=== PATIENT | female | born 1985 | race African-American/Black ===

== ENCOUNTER 2020-09-08 13:53 | Emergency (ER) | payer MEDICAID ==
[~2020-09-08] VITALS: Ht 154.9 cm; Wt 104.3 kg
[2020-09-08] MEDS ORDERED: NIFE60TA72 PO (14:12)
[2020-09-08] MEDS ORDERED: LABE200T5 PO (14:12)
[2020-09-08] MEDS ORDERED: ASPI81TA31 PO (14:12)
[2020-09-08 14:42] LABS: BASOPHILS % (AUTO) 0.2 % (0.0-2.0); EOSINOPHILS # (AUTO) 0.1 K/uL (0.0-0.7); HEMATOCRIT 29.8 % (31.2-41.9); LYMPHOCYTES # (AUTO) 1.4 K/uL (20.0-40.0); LYMPHOCYTES % (AUTO) 12.2 % (20.5-51.5); MEAN CORPUSCULAR HEMOGLOBIN 32.3 uug (24.7-32.8); MEAN CORPUSCULAR HGB CONC 33 g/dL (32.3-35.6); MEAN CORPUSCULAR VOLUME 96.7 fL (75.5-95.3); MONOCYTES # (AUTO) 0.9 K/uL (2.0-10.0); MONOCYTES % (AUTO) 7.7 % (0.0-11.0); NEUTROPHILS # (AUTO) 9.2 K/uL (1.8-8.9); NEUTROPHILS % (AUTO) 78.9 % (38.5-71.5); PLATELET COUNT (AUTO) 228 K/uL (179-408); RED BLOOD CELL COUNT(AUTO) 3.08 MIL/uL (3.63-4.92); WHITE BLOOD COUNT (AUTO) 11.7 K/uL (3.8-11.8)
[2020-09-08 14:45] LABS: CREATININE 0.7 mg/dL (0.6-1.3); POTASSIUM 4.1 mmol/L (3.5-5.1)
[2020-09-08] MEDS ORDERED: IOHEXOL 350 100 ML INFUS..BTL ONE (15:39)
[2020-09-08] MEDS ORDERED: IV NORMAL SALINE 0 ML IV ONE (15:39)
[2020-09-08] MEDS ORDERED: SWABABLE VALVE TRANSFER SET EA MC ONE (15:39)
--- NOTE | 2020-09-08 16:58 | NUR ---
TEST RESLUTS/ FACESHEET FAXED TO [facility] [phone] PER ADDIE. [phone].
[2020-09-08] MEDS ORDERED: HYDROCODONE/APAP 5-325MG TABLET PO ONE (18:00)
[2020-09-08] MEDS ORDERED: HYDROCODONE/APAP 5-325MG TABLET ONE (18:08)
--- NOTE | 2020-09-08 20:11 | NUR ---
Called [phone] spoke with [facility]. at [facility].
--- NOTE | 2020-09-08 20:19 | NUR ---
Called [facility] transfer center to transfer pt for higher level of care. Per L&D department, no bed availability. declines admission at this time.
--- NOTE | 2020-09-08 20:33 | NUR ---
Made call to [facility] for possible transfer for higher level of care. States they will call me back.
--- NOTE | 2020-09-08 20:41 | NUR ---
[facility] declines transfer. Not enough beds.
--- NOTE | 2020-09-08 21:34 | NUR ---
[facility] declines transfer. spoke with Dr. Faye
[2020-09-08] MEDS ORDERED: OXYCODONE/APAP 5-325 MG TABLET PO ONE (21:45)
[2020-09-08] MEDS ORDERED: OXYCODONE/APAP 5-325 MG TABLET ONE (21:52)
[2020-09-08] MEDS ORDERED: CHOLECALCIFEROL 1,000 UNIT TABLET ONE (21:52)
[2020-09-08] MEDS: CHOLECALCIFEROL 1,000 UNIT TABLET PO SCH (22:01)
--- NOTE | 2020-09-08 22:17 | NUR ---
Faxed over face sheet & clinicals to [facility]. fax# [phone]
--- NOTE | 2020-09-08 23:08 | NUR ---
Spoke with Yesi (counter caser). States patient is capitated to [facility]. Requesting to fax clinicals to RN plastics supervisor. fax#[phone].
--- NOTE | 2020-09-09 00:41 | NUR ---
Dr. Ocasio accepts patient for transfer to [facility]. pending transfer info from telehealth case manager
--- NOTE | 2020-09-09 02:42 | NUR ---
Transfer info: Patient accepted at [facility]. Pt going to Room 315B. Phone# for report is [phone]. Transport pickup ETA [id number].
--- NOTE | 2020-09-09 03:03 | NUR ---
Report given to Clarissa ALEMAN at [facility]
--- NOTE | 2020-09-09 03:41 | NUR ---
Called [facility] for update on pickup. [address] to pickup patient. ETA 45 min
--- NOTE | 2020-09-09 05:42 | NUR ---
[facility] [address] was here to pickup pt, but had emergency call so was unable to transport patient. States they are sending another unit to come by no later than 0630.
[2020-09-09] MEDS ORDERED: LIDOCAINE 5% PATCH TD ONE ×2 (05:45→05:50)
[2020-09-09] MEDS ORDERED: OXYCODONE/APAP 5-325 MG TABLET PO ONE (05:45)
[2020-09-09] MEDS ORDERED: OXYCODONE/APAP 5-325 MG TABLET ONE (05:50)
--- NOTE | 2020-09-09 06:40 | NUR ---
Spoke with housing case manager Marilyn regarding transportation issues. She Gave authorization code [id number] to use any ambulance company. Called [facility] for update on arrival time. States 20 min away.
--- NOTE | 2020-09-09 07:14 | NUR ---
PATIENT IS AWAKE AND ALERT WITH NO COMPLAINTS. SHE IS WATCHING TV. WAITING FOR AMBULANCE ARRIVAL.
--- NOTE | 2020-09-09 07:29 | NUR ---
[facility] HERE TO TAKE PATIENT TO [facility]. PATIENT IS AWAKE AND ALERT, VITAL SIGNS STABLE. PATIENT STATES PAIN IS MINIMAL RIGHT NOW
[2020-09-09] MEDS: CHOLECALCIFEROL 1,000 UNIT TABLET PO SCH (07:34)
--- NOTE | 2020-09-09 07:51 | NUR ---
REPORT GIVEN TO SINDHU ALEMAN FROM [facility].
== END 2020-09-09 07:53 | disposition short-term general hospital (02) ==
LOC: ER 13:53
DX: O98.812 Other maternal infectious and parasitic diseases complicating pregnancy, second trimester (principal); J18.1 Lobar pneumonia, unspecified organism; R07.9 Chest pain, unspecified; R79.1 Abnormal coagulation profile; Z3A.27 27 weeks gestation of pregnancy; J45.909 Unspecified asthma, uncomplicated; Z20.822 Contact with and (suspected) exposure to COVID-19
CPT/HCPCS: 36415; 70030-TC; 71045; 85025; 93005; A4663; J7050; Q9967

== ENCOUNTER 2021-11-09 00:50 | Emergency (ER) | payer MEDICAID ==
[~2021-11-09] VITALS: Ht 157.5 cm; Wt 93.9 kg
[~2021-11-09 00:50] MED LIST: ASPI81TA31 PO; LABE200T5 PO; NIFE60TA72 PO
--- NOTE | 2021-11-09 01:02 | NUR ---
Dr. Smalls at bedside, MSE in progress.
[2021-11-09] MEDS ORDERED: ASPIRIN 81 MG TAB.CHEW ONE (01:11)
[2021-11-09] MEDS ORDERED: predniSONE 20 MG TABLET ONE (01:11)
[2021-11-09] MEDS ORDERED: ALBUTEROL SULFATE 2.5 MG/3 ML NEBU NEB ONE (01:15)
[2021-11-09] MEDS ORDERED: ASPIRIN 81 MG TAB.CHEW PO ONE (01:15)
[2021-11-09] MEDS ORDERED: predniSONE 10 MG TABLET PO ONE (01:15)
[2021-11-09] MEDS ORDERED: IPRATROPIUM BROMIDE 0.5 MG/2.5 ML NEBU NEB ONE (01:15)
[2021-11-09] MEDS ORDERED: IPRATROPIUM BROMIDE 0.5 MG/2.5 ML NEBU ONE (01:21)
[2021-11-09] MEDS ORDERED: ALBUTEROL SULFATE 2.5 MG/3 ML NEBU ONE (01:21)
[2021-11-09 01:56] LABS: HEMATOCRIT 27.3 % (31.2-41.9); MEAN CORPUSCULAR HEMOGLOBIN 35.7 uug (24.7-32.8); MEAN CORPUSCULAR VOLUME 103.7 fL (75.5-95.3); PLATELET COUNT (AUTO) 197 K/uL (179-408)
--- NOTE | 2021-11-09 02:05 | NUR ---
Pt taken to CT
[2021-11-09 02:07] LABS: CARBON DIOXIDE 23 mmol/L (21-32); CHLORIDE 105 mmol/L (98-107); CREATININE 1.7 mg/dL (0.6-1.3); GLUCOSE 108 mg/dL (74-106); POTASSIUM 4.5 mmol/L (3.5-5.1); UREA NITROGEN, BLOOD 35 mg/dL (7-18)
[2021-11-09 02:20] LABS: ALANINE AMINOTRANSFERASE 23 U/L (14-59); ALKALINE PHOSPHATASE 142 U/L (50-136); ASPARTATE AMINOTRANSFERASE 18 U/L (15-37); BILIRUBIN,DIRECT 0.1 mg/dL (0.0-0.2); BILIRUBIN,TOTAL 0.1 mg/dL (0.2-1.0); TOTAL PROTEIN, SERUM 7.7 g/dL (6.4-8.2)
[2021-11-09] MEDS ORDERED: ALBU8.5H8 IH (03:01)
[2021-11-09] MEDS ORDERED: PRED20TA PO (03:01)
[2021-11-09] MEDS ORDERED: ONDANSETRON ODT 4 MG TAB.RAPDIS ONE (04:30)
[2021-11-09] MEDS ORDERED: OXYCODONE/APAP 5-325 MG TABLET PO ONE (04:30)
[2021-11-09] MEDS ORDERED: ONDANSETRON ODT 4 MG TAB.RAPDIS SL ONE (04:30)
[2021-11-09] MEDS ORDERED: OXYCODONE/APAP 5-325 MG TABLET ONE (04:31)
[2021-11-09] MEDS ORDERED: OXYC-133 PO (04:56)
[2021-11-09] MEDS ORDERED: AZIT250T13 PO (04:56)
[2021-11-09] MEDS ORDERED: AZITHROMYCIN 250 MG TABLET ONE (04:58)
[2021-11-09] MEDS ORDERED: AZITHROMYCIN 250 MG TABLET PO ONE (05:00)
--- NOTE | 2021-11-09 05:22 | NUR ---
called [facility]. they said 20-40 mins ETA.
[2021-11-09 05:31] VITALS: BP 125/92
--- NOTE | 2021-11-09 05:31 | NUR ---
Patient discharged to home in stable condition. Written and verbal after care instructions given. Patient verbalizes understanding of instructions. Stressed follow up or return to ER for worsening s/s. pt ambulated with steady gait. denies pain .no SOB. no chest pain. AOx4
== END 2021-11-09 05:32 | disposition home or self-care (01) ==
LOC: ER 00:55
DX: J20.9 Acute bronchitis, unspecified (principal); J45.909 Unspecified asthma, uncomplicated; G89.29 Other chronic pain; M54.9 Dorsalgia, unspecified; D53.9 Nutritional anemia, unspecified; C34.91 Malignant neoplasm of unspecified part of right bronchus or lung; Z92.21 Personal history of antineoplastic chemotherapy; Z79.899 Other long term (current) drug therapy; Z79.82 Long term (current) use of aspirin; Z20.822 Contact with and (suspected) exposure to COVID-19; R91.8 Other nonspecific abnormal finding of lung field
CPT/HCPCS: 36415; 71045; 71250; 80048; 80076; 83880; 84484 ×2; 85025; 87400; 87426; 93005; 94640; 99285; J7512; A4663; J3590; Q0144; Q0162